=== PATIENT | male | born 1975 ===

== ENCOUNTER 2021-12-15 16:56 | Emergency (ER) | payer OTHER ==
[~2021-12-15] VITALS: Wt 85.3 kg
[2021-12-15] MEDS ORDERED: ROSUVASTATIN CAL5 MG PO (18:01)
[2021-12-15] MEDS ORDERED: HYDROCHLOROTHIA25 M1 PO (18:01)
[2021-12-15] MEDS ORDERED: TADALAFIL20 M1 PO (18:01)
[2021-12-15 18:02] LABS: BASO % 0.3 % (0.0-1.0); EOS # 0.1 10*3/uL (0.0-0.4); EOS % 0.7 % (1.0-4.0); HEMATOCRIT 44.6 % (42.0-52.0); LYMPH # 1.8 10*3/uL (1.3-4.4); MEAN CELL VOLUME 82.4 fl (80.0-94.0); MEAN CORPUSCULAR HGB 29.6 pg (27.0-31.0); MEAN CORPUSCULAR HGB CONC 35.9 g/dl (33.0-37.0); MEAN PLATELET VOLUME 10.2 fl (9.6-12.3); MONO # 0.6 10*3/uL (0.1-1.0); MONO % 5.9 % (3.0-9.0); NEUT # 7.1 10*3/uL (2.3-7.9); NEUT % 73.8 % (47.0-73.0); PLATELET COUNT AUTOMATED 264 10*3/uL (130-400); RED BLOOD COUNT 5.41 10*6/uL (4.50-5.90); RED CELL DISTRI WIDTH 12.5 % (0-14.5); WHITE BLOOD COUNT 9.6 10*3/uL (4.8-10.8)
[2021-12-15 18:13] LABS: ACT PARTIAL THROMBO TIME 23.2 SECONDS (20.0-32.1)
[2021-12-15 18:21] LABS: ALKALINE PHOSPHATASE 52 U/L (45-117); BUN 14 mg/dl (7-24); CHLORIDE 106 mmol/L (98-107); CREATININE 0.98 mg/dL (0.70-1.30); LIPASE 93 U/L (73-393); SGOT/AST 22 IU/L (3-35); SGPT/ALT 35 U/L (12-78); SODIUM 140 mmol/L (136-145); TOTAL PROTEIN 7.4 gm/dL (6.4-8.2)
== END 2021-12-15 18:30 ==
LOC: ED 16:56
PROVIDERS: Physician Assistant
DX: I21.09 ST elevation (STEMI) myocardial infarction involving other coronary artery of anterior wall (principal); Z88.0 Allergy status to penicillin; Z79.899 Other long term (current) drug therapy